=== PATIENT | female | born 1985 ===

== ENCOUNTER 2021-08-30 11:53 | Inpatient (IN) | payer OTHER ==
[~2021-08-30] VITALS: Ht 149.9 cm; Wt 70.9 kg
[2021-09-01] VITALS (38 sets, daily range): BP systolic 96–162; BP diastolic 53–93; PULSE 66–139; TEMP 98.2–98.6
--- NOTE | 2021-09-01 06:00 | NUR ---
0605-, 39.0, scheduled for induction ambulates onto unit, to LDR5 with spouse. Changed into gown. Patient denies LOF, VB, decreased movement, and reports some ctx, not regular at this time. EFM/TOCO explained and applied. 0630-IV started. Blood obtained and to lab. IV fluids started. Assessment completed, consents explained and signed. Plan of care discussed. 0703-Pitocin discussed, patient verbalizes understanding. Pitocin started at 2 mu per protocol. No adverse reactions noted. Plan of care discussed. 0720-Difficulty tracing ctx due to maternal position. This RN at bedside adjusting TOCO and repositioning patient. 0827- at bedside assessing patient and FHR. 0830-SVE per physician . AROM done at this time. Patient tolerates well. Plan of care discussed, patient verbalizes understanding.
[2021-09-01] MEDS ORDERED: PRENATAL TABLET PO (06:48)
[2021-09-01] MEDS ORDERED: ZYRTEC 10MG10 MG PO (06:49)
[2021-09-01] MEDS ORDERED: ZOLOFT 50MG50 MG PO (06:51)
[2021-09-01] MEDS ORDERED: FERROUSGLUC256MG (06:52)
[2021-09-01 07:05] LABS: BASO % 0.2 % (0.0-2.0); EOS # 0.1 K/mm3 (0.0-0.7); EOS % 1.2 % (0-4.0); GRAN # 6.1 K/mm3 (1.4-6.5); GRAN % 60.5 % (42.2-75.2); HEMATOCRIT 37.8 % (37.0-47.0); HEMOGLOBIN 12.3 g/dl (12.5-16.0); LYMPH # 3.1 K/mm3 (1.2-3.4); LYMPH % 30.5 % (20.0-51.0); MEAN CELL VOLUME 86 fl (80.0-100.0); MEAN CORPUSCULAR HEMOGLOBIN 28 pg (27.0-31.0); MEAN CORPUSCULAR HGB CONC 33 g/dl (33.0-37.0); MONO # 0.7 K/mm3 (0.1-0.6); MONO % 7.1 % (1.7-9.3); PLATELET COUNT 322 K/mm3 (130-400); REDCELL DISTRIBUTION WIDTH-CV 14.6 % (11.5-14.5)
--- NOTE | 2021-09-01 09:40 | NUR ---
0940-Patient is requesting epidural at this time. 0941-TANIYA Bustillo notified of patient's request.
--- NOTE | 2021-09-01 10:00 | NUR ---
1000-TANIYA Bustillo at bedside for epidural placement. FHR tracing intermittenly due to maternal position. Pulse ox applied, not tracing. 1006-Single shot given by TANIYA Bustillo. See anesthesia records. 1010-EFM adjusted and tracing well. Patient wedged left. 1020-Patient reports "chest tingliness". SPO2 100% on RA. Lungs CTA. Patient sleepy, states it is difficult to keep eyes opened. 1022-Prolonged FHR decel to 70-80s. Dynamap pulse ox on maternal heart rate, 90s. Patient high left lateral. 1023-LR blous infusing. 1025-SVE per JING Saha /-1. Patient right lateral. 1026-Pitocin off. 1028-Attempted to notify , see physician notification. Patient wedged left. 1030- updated on patient. See physician notification. Patient left lateral, head of bed up. FHR recovers to baseline of 130s at this time. Plan of care reviewed with patient, patient verbalizes understanding. Iwona MONAHAN at bedside and notified.
--- NOTE | 2021-09-01 12:41 | NUR ---
1241- Dr. Lewis to bedside. SVE per provider C/+2. Patient instructed on pushing with contractions. Verbalizes understanding. 1246- Pitocin restarted at 2mu per Dr. Sykes orders. Catheter removed. 1250- Patient begins to push with contractions with Rn at bedside. Dr. Lewis remains on unit. 1300- Patient contines to push with contractions with RN at bedside. Strong maternal effort. Moves vertex well. Small crown noted. Dr. Lewis requested at bedside. 1320- Medial episiotomoy by Dr. Lewis. 1322- Spontaneous vaginal delivery of viable female infant. Nares and mouth bulb suctioned by Dr. Lewis. To mother's chest where dried and stimulated by nursery RN. 1324- Cord clamped x2 and cut by Dr. Lewis. Care of assumed by Zaid Cervantes Rn. Pitocin paused. 1327- Spontaneous and intact delivery of placenta. Pitocin resumed at 333ml/hr per orders. Episiotomy with second degree laceration repaired by Dr. Lewis. 1330- Fundus firm, and bleeding minimal. 1335- Kim care provided, pads changed, and ice pack to perineum. Plan of care and safety precautions reviewed. See doctor dictation, anesthesia record, and nurses notes.
--- NOTE | 2021-09-01 16:10 | NUR ---
REPORT TAKEN AND CARE ASSUMED.
[2021-09-02 02:05] VITALS: BP 113/65; PULSE 68; TEMP 97.8
[2021-09-02 07:30] VITALS: BP 115/66; PULSE 72; TEMP 97.9
[2021-09-02 07:54] LABS: HEMOGLOBIN 10.7 g/dl (12.5-16.0)
[2021-09-02 07:55] LABS: HEMATOCRIT 32.1 % (37.0-47.0)
[2021-09-02] MEDS ORDERED: PERCOCET 325 MG1 TA2 PO (08:53)
[2021-09-02] MEDS ORDERED: IBU600 MG PO (08:53)
[2021-09-02 12:56] VITALS: BP 124/61; PULSE 68; TEMP 97.8
== END 2021-09-02 14:40 | disposition home or self-care (01) | DRG 807 ==
LOC: LDR 09-01 05:57 → OB 09-01 15:30 → LDR 09-01 18:06 → OB 09-02 14:40
PROVIDERS: ADMIT Obstetrics & Gynecology
PROC: 10E0XZZ Delivery of Products of Conception, External Approach (ICD-10-PCS; principal; 2021-09-01)
PROC: 0KQM0ZZ Repair Perineum Muscle, Open Approach (ICD-10-PCS; 2021-09-01)
PROC: 10907ZC Drainage of Amniotic Fluid, Therapeutic from Products of Conception, Via Natural or Artificial Opening (ICD-10-PCS; 2021-09-01)
DX: O99.344 Other mental disorders complicating childbirth (principal); Z37.0 Single live birth; F41.9 Anxiety disorder, unspecified; Z3A.39 39 weeks gestation of pregnancy; O70.1 Second degree perineal laceration during delivery
CPT/HCPCS: J2590; J2795; J7120